=== PATIENT | female | born 1950 | race Caucasian/White ===

== ENCOUNTER 2024-05-17 07:55 | Outpatient (CLI) | payer MEDICARE, SELFPAY ==
--- NOTE | 2024-05-17 08:01 | MR_ITS ---
PROCEDURE INFORMATION: Exam: MR Cervical Spine Without Contrast Exam date and time: 05/17/2024 8:04 AM Age: 74 years old Clinical indication: Neck pain; Additional info: Screening cervicalgia TECHNIQUE: Imaging protocol: Magnetic resonance imaging of the cervical spine without contrast. COMPARISON: No relevant prior studies available. FINDINGS: Evaluation is mildly limited secondary to patient motion. Bones/joints: The vertebral body heights are maintained. There is grade 1 anterolisthesis of C5 on C6 and C6 on C7. There is jyeh-ga-somtthol multilevel degenerative disc disease. Spinal cord: Normal signal. No cord compression. C2-C3: There is no significant spinal canal stenosis. The right neural foramen appears patent. There is mild left neural foraminal stenosis secondary foraminal disc osteophyte ridging and facet hypertrophy. C3-C4: There is mild spinal canal stenosis secondary to diffuse disc osteophyte bulging which effaces the anterior thecal sac. There is mild bilateral neural foraminal stenosis secondary to foraminal disc osteophyte bulging and facet hypertrophy. C4-C5: There is [id number]-ic-bhvvevds spinal canal stenosis secondary to diffuse disc bulging which effaces the anterior thecal sac. There is wofk-cy-tetwgyup left and mild right neural foraminal stenosis secondary to foraminal disc osteophyte bulging and facet hypertrophy. C5-C6: There is mild spinal canal stenosis secondary to central disc bulging which effaces the anterior thecal sac. There is mild to moderate bilateral stenosis secondary to foraminal disc osteophyte bulging and facet hypertrophy. C6-C7: There is cpby-la-lrusoezz spinal canal stenosis secondary to a small to moderate-sized broad-based central disc protrusion which effaces anterior thecal sac. The right neural foramen appears patent. There is mild left neural foraminal stenosis secondary to foraminal disc bulging and facet hypertrophy. C7-T1: No significant disc bulge or herniation. No severe spinal canal stenosis. No significant neural foraminal narrowing. Soft tissues: Unremarkable. Vasculature: Expected flow voids in the vertebral arteries. IMPRESSION: 1. Mildly limited exam. 2. Degenerative changes as described. Please see above for specific findings at each level.
--- NOTE | 2024-05-17 08:55 | XR_ITS ---
FINAL REPORT CLINICAL HISTORY: screening FINDINGS: Using L1-4, the bone mineral density of the spine is 0.861 g/cm2, corresponding to T-score of -1.7. Using the left hip, the bone mineral density of the femoral neck is 0.734 g/cm2, corresponding to a T-score of -1.0. Using the right hip: The bone mineral density of the femoral neck is 0.562 g/cm2, corresponding to a T-score of -2.6. IMPRESSION: Osteopenic bone mineral density of the lumbar spine. Normal bone mineral density of the left hip. Osteoporotic bone mineral density of the right hip. NOTE: T-score: Standard deviation compared with peak bone mass of young adult mean. *Following the recommendations of the International Society of Bone densitometry, classification of hip BMD is based on the lower of two T-scores; total hip or femoral neck. Reviewed, Interpreted and Dictated by Lavelle Cano MD Transcribed by Radha You Authenticated and . [facility]
== END 2024-05-17 23:59 | disposition home or self-care (01) ==
LOC: RAD 07:56
PROVIDERS: PCP Nurse Practitioner Family; Visit Provider Nurse Practitioner Family
DX: M81.0 Age-related osteoporosis without current pathological fracture (principal); M54.2 Cervicalgia
CPT/HCPCS: 72141; 77080